=== PATIENT | female | born 1995 | race Caucasian/White ===

== ENCOUNTER 2022-04-01 12:34 | Emergency (ER) | payer BC ==
[~2022-04-01] VITALS: Ht 162.6 cm; Wt 95.0 kg
[2022-04-01] MEDS ORDERED: Morphine 4mg Syringe 4 MG/ML INJ IV STA (12:52)
[2022-04-01] MEDS ORDERED: ONDANSETRON HCL INJ 2MG/ML 2ML 2 MG/ML VIAL IV ONE (13:00)
[2022-04-01] MEDS ORDERED: KETOROLAC TROMETHAMINE 30 MG/ML VIAL IV ONE (13:00)
[2022-04-01] MEDS ORDERED: HYDROCODONE/APAP 5MG-325MG TAB PO ONE (13:00)
[2022-04-01] MEDS ORDERED: ACETAMINOPHEN-1 EAC4 PO (14:21)
[2022-04-01] MEDS ORDERED: ONDANSETRON ODT4 MG PO (14:21)
[2022-04-01] MEDS ORDERED: IBUPROFEN200 MG PO (14:21)
== END 2022-04-01 14:41 | disposition home or self-care (01) ==
LOC: FSED 12:42
DX: S43.491A Other sprain of right shoulder joint, initial encounter (principal); W18.39XA Other fall on same level, initial encounter; Y93.01 Activity, walking, marching and hiking; Y92.098 Other place in other non-institutional residence as the place of occurrence of the external cause
CPT/HCPCS: 29240; 73030; 73070; 73100; 99283; J1885; J2270; J2405